=== PATIENT | female | born 1975 | race Two or more races ===

== ENCOUNTER 2019-02-02 13:45 | Emergency (ER) | payer MEDICAID, OTHER ==
[~2019-02-02] VITALS: Ht 160 cm; Wt 56.2 kg
--- NOTE | 2019-02-02 14:08 | NUR ---
DEIDRE [id number] From Home Seizures, son said "she looked like she could not breath Liquid coming from mouth." Hx same in the past most recent this am. BS 117" Seizure precaution observed, siderails padded for safety. Patient with no s/sx of seizure at this time, a/ox4. kept comfortable, placed on monitor. Will continue to monitor.
[2019-02-02] MEDS ORDERED: IBUP-1953 PO (14:23)
[2019-02-02] MEDS ORDERED: LEVE750T10 PO (14:23)
[2019-02-02] MEDS ORDERED: LORAZEPAM INJ 2 MG/ML VIAL ONE (14:24)
[2019-02-02] MEDS ORDERED: LORAZEPAM INJ 2 MG/ML VIAL IV ONE (14:30)
[2019-02-02] MEDS ORDERED: LEVETIRACETAM (500MG) 1,000 MG in IV NS 0.9% 100 ML IV SCH (14:30)
--- NOTE | 2019-02-02 14:35 | NUR ---
PATIENT SCREAMED FOLLOWED WITH TONIC CLONIC SEIZURE X30 SECS, WITNESSED. MONITOR SHOWS PATIENT DESATURATING. PATIENT IMMEDIATELY PLACED ON OXYGEN 15LPM VIA NRB, SPO2 100%. SEIZURE PRECAUTION OBSERVED. DR. GOOD AWARE AND GAVE ORDER FOR ATIVAN 2MG IV. ORDER NOTED AND CARRIED OUT. KEPPRA IV STARTED. RT CAME AND ASSESSED THE PATIENT, REDUCED THE O2 AT 10LPM VIA NRB, SPO2 REMAINS TO BE 100%. PATIENT POST-ICTAL AT THIS TIME, KEPT COMFORTABLE. Addendum: 02/02/19 at 1500 by ROALCANCES CORRECTION: GRAND MAL SEIZURE
--- NOTE | 2019-02-02 17:15 | NUR ---
PATIENT RESPONSIVE TO VERBAL AND TACTILE STIMULI BUT STILL LETHARGIC, PATIENT ABLE TO DRINK SOME WATER, ASPIRATION PRECAUTION OBSERVED. PATIENT KEPT COMFORTABLE. WILL CONTINUE TO MONITOR. PER DR. GOOD, OK TO DISCHARGE ONCE PATIENT IS ALERT AND FULLY ORIENTED AND WALKING.
--- NOTE | 2019-02-02 19:01 | NUR ---
PATIENT A/OX3, BREATHING EVEN AND UNLABORED, NO SOB NOTED, DENIES PAIN OR DISCOMFORT, PATIENT STATED SHE FEELS BETTER, FAMILY RECEIVED A CALL FROM DR. LEMONS (PATIENT'S NEUROLOGIST) AND HE STATED TO INFORM ER MD TO INCREASE KEPPRA TO 1GM BID, DR. GOOD MADE AWARE. RX PROVIDED AND GIVEN TO THE PATIENT AND . DISCHARGE INSTRUCTIONS PROVIDED AND BOTH VERBALIZED UNDERSTANDING. IV LINE REMOVED. PATIENT TRANSFERRED TO WHEELCHAIR AND ASSISTED TO THE CAR. PATIENT LEFT IN STABLE CONDITION.
[2019-02-02 19:04] VITALS: BP 105/89
== END 2019-02-02 19:04 | disposition home or self-care (01) ==
LOC: ER 13:46
DX: G40.909 Epilepsy, unspecified, not intractable, without status epilepticus (principal)
CPT/HCPCS: 96365; 96375; 99283; J1953; J2060; J7030